=== PATIENT | male | born 1950 | race Caucasian/White ===

== ENCOUNTER 2017-12-01 07:40 | Day surgery (SDC) | payer OTHER ==
[2017-11-25 17:38] VITALS: BMI 19.5
[2017-12-01] MEDS ORDERED: MIDAZOLAM HCL 2 MG/2 ML SINGLE DOSE VIAL ONE (08:47)
[2017-12-01] MEDS ORDERED: PROPOFOL 20 ML ONE (08:47)
[2017-12-01] MEDS ORDERED: POVIDONE-IODINE 5% OPHTHALMIC PREP 30 ML SOLUTION ONE (09:32)
[2017-12-01] MEDS ORDERED: BACITRACIN 3.5 GM OPTHALMIC OINT TUBE ONE (09:32)
[2017-12-01] MEDS ORDERED: LIDOCAINE 1%/EPI 1:100000 (20 ML MULTI DOSE VIAL) ONE (09:32)
[2017-12-01] MEDS ORDERED: BUPIVACAINE HCL/PF 0.5% (5MG/ML) 10 ML VIAL ONE (09:32)
[2017-12-01] MEDS ORDERED: TETRACAINE 0.5% OPHTH SOLN 2 ML BOTTLE ONE (09:32)
[2017-12-01] MEDS ORDERED: LIDOCAINE HCL/PF 2% SDV 5ML VIAL ONE (09:53)
[2017-12-01] MEDS ORDERED: DEXAMETHASONE SOD PHOSPHATE 4 MG/1 ML VIAL ONE (09:53)
[2017-12-01] MEDS ORDERED: ONDANSETRON 4 MG/2 ML VIAL ONE (09:53)
[2017-12-01] MEDS ORDERED: ceFAZolin SODIUM 1 GM VIAL ONE (10:05)
[2017-12-01] MEDS ORDERED: PHENYLEPHRINE HCL 10 MG/1 ML SINGLE DOSE VIAL ONE (10:34)
[2017-12-01] MEDS ORDERED: ONDANSETRON 4 MG/2 ML VIAL IVPUSH PRN (11:07)
[2017-12-01] MEDS ORDERED: oxyCODONE HCL 5 MG TABLET PO PRN (11:07)
[2017-12-01] MEDS ORDERED: LACTATED RINGERS SOLUTION 1,000 ML IV SCH (11:15)
--- NOTE | 2017-12-01 11:44 | OP ---
DATE OF OPERATION: 12/01/2017 PREOPERATIVE DIAGNOSIS: Defect lateral right lower lid status post excision of basal cell carcinoma. POSTOPERATIVE DIAGNOSIS: Defect lateral right lower lid status post excision of basal cell carcinoma. PROCEDURE: 1. Debridement defect right lower lid laterally. 2. Myocutaneous flap from the right cheek to the right lower lid. SURGEON: Suzi Lizama MD ANESTHESIA: Local with sedation. COMPLICATIONS: None. ESTIMATED BLOOD LOSS: 4 mL. OPERATIVE REPORT: Patient brought to the operating room, placed on the operating room table. Vital signs monitored by Anesthesia. Timeout was performed. Tetracaine was placed in both eyes, and after intravenous sedation was administered and the wound was examined, measured, a myocutaneous flap was marked out inferolaterally on the cheek. A 50/50 mixture of 2% Xylocaine, 1:100,000 epinephrine, and 0.5% Marcaine was injected diffusely throughout the right lower lid and right cheek for hemostasis. Total of about 3-5 mL was used. The patient was prepped and draped in sterile fashion exposing both eyes. A myocutaneous flap was now incised, elevated, incised with 15-blade, was elevated a skin hook and Conner scissors, and then wide undermining with a Fishman scissors was carried out in the preorbicularis plane toward the gnosticist, and this allowed for mobilization of the cheek. Also the nasal portion of the cheek was mobilized as well as a skin muscle flap. The myocutaneous flap was rotated superiorly toward the eyelid, and it was secured there with a single 5-0 chromic subcuticular suture. The donor site was closed with interrupted 4-0 chromic sutures, being careful not to place undue tension on the eyelid margin, and therefore the full extent of the rhomboid flap was used to minimize the closure of the vertical donor site and therefore minimizing inferolateral tension on the eyelid. All of these tissues were meticulously reapposed with either 4-0 chromic subcuticular or 5-0 chromic subcuticular, and then with running and interrupted 6-0 and 5-0 plain fast-absorbing suture. Once the flap was completely sutured into position, the eyelid was rechecked. There was no tension on the eyelid. Bacitracin was placed on the sutures, and the patient was taken to recovery room in stable condition. SUZI LIZAMA M.D. [facility]MONE/[id number]
[2017-12-01 13:56] VITALS: TEMP 97.5
[2017-12-01 13:58] VITALS: BP 107/65; PULSE 60
== END 2017-12-01 12:30 | disposition home or self-care (01) ==
LOC: FASU 07:40
PROVIDERS: ATTEND Ophthalmology
PROC: 0KX10ZZ Transfer Facial Muscle, Open Approach (ICD-10-PCS; 2017-12-01)
PROC: 08BQ0ZZ Excision of Right Lower Eyelid, Open Approach (ICD-10-PCS; principal; 2017-12-01 10:18)
DX: C44.112 Basal cell carcinoma of skin of right eyelid, including canthus (principal); H02.89 Other specified disorders of eyelid
CPT/HCPCS: 94760